=== PATIENT | male | born 1990 | race Two or more races ===

== ENCOUNTER 2017-07-22 12:04 | Emergency (ER) | payer MEDICAID ==
[~2017-07-22] VITALS: Ht 180.3 cm; Wt 90.7 kg
[~2017-07-22 12:04] MED LIST: XANAX0.25 MG ORAL
--- NOTE | 2017-07-22 12:17 | Emergency Room Report ---
History of Present Illness General Chief Complaint: Skin Rash/Abscess Source: Patient Present Illness HPI 26 YO Male presents to the ED c/O Itching , and erythema with swelling of the bilateral hands x 2 days. 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 Denies Fevers,chills, nausea or vomiting. Denies lesions/rashes elsewhere on the body. Denies new medications or body washes or creams. Denies swelling of the lips, tongue , throat or airway. Denies wheezing, or shortness of breath. Denies recent travel, recent illness, sore throat, or ill contacts. denies blisters, oral lesions, or sloughing of the skin. Denies CP, Palpitations, LOC, AMS, dizziness, Changes in Vision, Sensation, paresthesias, or a sudden severe headache. Allergies: Coded Allergies: No Known Allergies (Unverified , 10/16/14) Patient History Past Medical History: see triage record Past Surgical History: none Pertinent Family History: none Immunizations: UTD Reviewed Nursing Documentation: PMH: Agreed, PSxH: Agreed Nursing Documentation-PMH Past Medical History: No History, Except For Hx Asthma: Yes Review of Systems All Other Systems: negative except mentioned in HPI Physical Exam Vital Signs Date Time Temp Pulse Resp B/P (MAP) Pulse Ox O2 Delivery O2 Flow Rate FiO2 07/22/17 12:11 98.1 81 20 144/87 99 Room Air Sp02 EP Interpretation: reviewed, normal General Appearance: no apparent distress, alert, GCS 15, non-toxic Head: normocephalic, atraumatic Eyes: bilateral eye normal inspection, bilateral eye PERRL ENT: hearing grossly normal, normal pharynx, no angioedema, normal voice Neck: full range of motion Respiratory: chest non-tender, lungs clear, normal breath sounds, no rhonchi, no wheezing, speaking full sentences Cardiovascular #1: regular rate, rhythm, no edema, normal capillary refill Cardiovascular #2: 2+ radial (R), 2+ radial (L) Gastrointestinal: non tender, soft, no guarding, no rebound Rectal: deferred Genitourinary: normal inspection, no CVA tenderness Musculoskeletal: back normal, gait/station normal, normal range of motion, non- tender Neurologic: alert, oriented x3, responsive, motor strength/tone normal, sensory intact, speech normal Psychiatric: judgement/insight normal, memory normal, mood/affect normal Skin: normal color, warm/dry, well hydrated, rash - blanching erythematous raised plaques to the bilateral hands and wrists, no streaking noted, good cap refill. pt. is NVI. no blisters or vessicles Lymphatic: no adenopathy Medical Decision Making PA Attestation Dr. Hernández is my supervising Physician whom patient management has been discussed with. Diagnostic Impression: Primary Impression: Rash and other nonspecific skin eruption ER Course 26 YO Male presents to the ED c/O Itching , and erythema with swelling of the bilateral hands x 2 days. 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 Denies Fevers,chills, nausea or vomiting. Denies lesions/rashes elsewhere on the body. Denies new medications or body washes or creams. Denies swelling of the lips, tongue , throat or airway. Denies wheezing, or shortness of breath. Denies recent travel, recent illness, sore throat, or ill contacts. denies blisters, oral lesions, or sloughing of the skin. Denies CP, Palpitations, LOC, AMS, dizziness, Changes in Vision, Sensation, paresthesias, or a sudden severe headache. Ddx considered but are not limited to cellulitis, scabies, shingles, varicella, dermatitis, urticaria, eczema, tinea Vital signs: are WNL, pt. is afebrile H&PE are most consistent with contact dermatitis, and localized reaction. ORDERS: none required at this time, the diagnosis is clinical ED INTERVENTIONS: None required at this time. DISCHARGE: At this time pt. is stable for d/c to home. Will provide printed patient care instructions, and any necessary prescriptions. Care plan and follow up instructions have been discussed with the patient prior to discharge. Last Vital Signs Date Time Temp Pulse Resp B/P (MAP) Pulse Ox O2 Delivery O2 Flow Rate FiO2 07/22/17 12:11 98.1 81 20 144/87 99 Room Air Disposition: HOME, SELF-CARE Condition: Stable Scripts Cetirizine Hcl* (ZYRTEC*) 10 Mg Tablet 10 MG ORAL DAILY, #30 TAB 0 Refills Prov: Elaine Kingston 07/22/17 Hydrocortisone (Hydrocortisone Cream 2.5%) Y Cream.appl 1 APPLIC TP BID, #28.3 GM Prov: Elaine Kingston 07/22/17 Diphenhydramine Hcl (BENADRYL ALLERGY) 25 Mg Tablet 25 MG PO Q6HR, #30 TAB Prov: Elaine Kingston 07/22/17 Departure Forms: Return to Work Return to Work Date: Jul 24, 2017 Work Restrictions: None Return to Full Activity: Jul 24, 2017 Patient Instructions: Rash Additional Instructions: Take medications as directed. Follow up with a Primary Care Provider in 3-5 days, even if your symptoms have resolved. --Please review list of primary care clinics, if you do not already have a primary care provider Return sooner to ED if new symptoms occur, or current symptoms become worse. Do not drink alcohol, drive, or operate heavy machinery while taking Benadryl as this may cause drowsiness. - Please note that this Emergency Department Report was dictated using [employer] technology software, occasionally this can lead to erroneous entry secondary to interpretation by the dictation equipment. Elaine Kingston Jul 22, 2017 12:17
[2017-07-22 12:18] VITALS: BP 147/84
[2017-07-22] MEDS ORDERED: BENADRYL ALLERG25 M1 PO (12:20)
[2017-07-22] MEDS ORDERED: HYDROCORTISONE30 G2 TP (12:20)
[2017-07-22] MEDS ORDERED: ZYRTEC10 MG ORAL (12:20)
[2017-07-22 12:26] VITALS: BP 147/84
== END 2017-07-22 12:37 | disposition home or self-care (01) ==
LOC: EMR 12:36
DX: R21 Rash and other nonspecific skin eruption (principal)
CPT/HCPCS: 99284

== ENCOUNTER 2017-08-17 20:36 | Emergency (ER) | payer MEDICAID ==
[~2017-08-17] VITALS: Ht 180.3 cm; Wt 90.7 kg
[~2017-08-17 20:36] MED LIST changes: +BENADRYL ALLERG25 M1 PO; +HYDROCORTISONE30 G2 TP; +ZYRTEC10 MG ORAL
[2017-08-17 20:55] VITALS: BP 142/81
[2017-08-17] MEDS ORDERED: BENADRYL ALLERG25 M1 PO (21:27)
[2017-08-17] MEDS ORDERED: HYDROCORTISONE1.5 GM TP (21:27)
[2017-08-17 21:38] VITALS: BP 142/81
--- NOTE | 2017-08-18 02:58 | Emergency Room Report ---
History of Present Illness General Chief Complaint: Skin Rash/Abscess Source: Patient Present Illness HPI 26-year-old male no significant past medical history presenting with intermittent rash for one month. Patient states that he has had itchy red rash underneath belly button, which has been going on for one month. Patient states that he also intermittently gets itching of the palms of his hands. Patient also states that today he noticed red spots in his inner thigh that were very itchy. Denies any insect bites that are known, denies any new medication, denies any fever chills, no recent travel, no new detergents. 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 Patient states that he's been taking 10 mg of Benadryl at home without relief No fever or chills Allergies: Coded Allergies: No Known Allergies (Unverified , 10/16/14) Patient History Past Medical History: see triage record Past Surgical History: none Pertinent Family History: none Reviewed Nursing Documentation: PMH: Agreed, PSxH: Agreed Nursing Documentation-PMH Hx Asthma: Yes Review of Systems All Other Systems: negative except mentioned in HPI Physical Exam Vital Signs Date Time Temp Pulse Resp B/P (MAP) Pulse Ox O2 Delivery O2 Flow Rate FiO2 08/17/17 20:42 97.9 107 18 142/81 97 Room Air Sp02 EP Interpretation: reviewed, normal General Appearance: normal inspection, well appearing, no apparent distress, alert, GCS 15, non-toxic Head: normocephalic, atraumatic Eyes: bilateral eye normal inspection, bilateral eye PERRL, bilateral eye EOMI ENT: normal ENT inspection, normal pharynx, normal voice, moist mucus membranes Neck: normal inspection, full range of motion, supple Respiratory: normal inspection, lungs clear, normal breath sounds, no respiratory distress, no retraction, no wheezing, speaking full sentences, chest symmetrical Cardiovascular #1: normal inspection, regular rate, rhythm, no edema, normal capillary refill Cardiovascular #2: 2+ radial (R), 2+ radial (L) Gastrointestinal: normal inspection, non tender, soft, non-distended, no guarding Genitourinary: no CVA tenderness Musculoskeletal: normal inspection, back normal, normal range of motion, non- tender Neurologic: normal inspection, alert, oriented x3, responsive, motor strength/ tone normal, sensory intact, normal gait, speech normal Psychiatric: normal inspection, judgement/insight normal, memory normal Skin: warm/dry, well hydrated, normal turgor, other - Raised blanching erythematous rash along belt line on abdomen, nontender, multiple circular raised rash seen on right inner thigh, nontender to palpation, no purulent drainage, appears to be insect bites Medical Decision Making Diagnostic Impression: Primary Impression: Rash and nonspecific skin eruption Additional Impression: Contact dermatitis ER Course 26-year-old male with rash for one month Also found to have what appears to be insect bites right inner thigh times one day DDX: Contact dermatitis Insect bites Plan: Benadryl ER course: Patient has remained stable during ED stay. Last HR 80 Disposition: Patient is to be discharged to home. Prescriptions given are Benadryl and hydrocortisone cream Patient is instructed to follow up with their primary care doctor within 5 days. Strict return precautions discussed with patient such as fever, chills, spread of rash, shortness of breath, throat pain, throat swelling, patient verbalizes understanding and agrees with plan. Please note that this Emergency Department Report was dictated using [employer] technology software, occasionally this can lead to erroneous entry secondary to interpretation by the dictation equipment Last Vital Signs Date Time Temp Pulse Resp B/P (MAP) Pulse Ox O2 Delivery O2 Flow Rate FiO2 08/17/17 21:38 97.9 107 18 142/81 97 Room Air Disposition: HOME, SELF-CARE Condition: Stable Scripts Diphenhydramine Hcl (BENADRYL ALLERGY) 25 Mg Tablet 25 MG PO Q6HR Y for Itching, #30 TAB 0 Refills Prov: Steven Lezama M.D. 08/17/17 Hydrocortisone (HYDROCORTISONE) 1.5 Gm Cream.pack 1.5 GM TP BID for 10 Days, #1 TUBE 0 Refills Prov: Steven Lezama M.D. 08/17/17 Referrals: NOT CHOSEN IPA/,REFERRING (PCP) Patient Instructions: Contact Dermatitis, [id number], Rash, [id number] Additional Instructions: PLEASE FOLLOW UP WITH YOUR PRIMARY CARE DOCTOR IN 1 WEEK Steven Lezama M.D. Aug 18, 2017 02:58
== END 2017-08-17 21:38 | disposition home or self-care (01) ==
LOC: EMR 21:22
DX: L25.9 Unspecified contact dermatitis, unspecified cause (principal); J45.909 Unspecified asthma, uncomplicated
CPT/HCPCS: 99284